=== PATIENT | male | born 1985 | race Caucasian/White ===

== ENCOUNTER 2018-04-10 14:55 | Emergency (ER) | payer BC ==
[~2018-04-10] VITALS: Ht 188 cm; Wt 61.2 kg
[~2018-04-10 14:55] MED LIST: NOHOMEMEDICATIONS; ZOFRAN ODT4 MG PO
[2018-04-10 15:54] VITALS: BP 119/83
== END 2018-04-10 15:56 | disposition home or self-care (01) ==
LOC: M.ERS 14:55
DX: S90.31XA Contusion of right foot, initial encounter (principal); X50.1XXA Overexertion from prolonged static or awkward postures, initial encounter; Y93.02 Activity, running; Y92.89 Other specified places as the place of occurrence of the external cause; Y99.8 Other external cause status

== ENCOUNTER 2019-02-23 12:50 | Emergency (ER) | payer BC ==
[~2019-02-23] VITALS: Ht 190.5 cm; Wt 59.0 kg
[2019-02-23 13:16] LABS: ABSOLUTE EOSINOPHILS 0.1 thou/uL (0.0-0.7); ABSOLUTE LYMPHOCYTES 2.1 thou/uL (0.8-5.3); ABSOLUTE MONOCYTES 0.9 thou/uL (0.0-1.2); ABSOLUTE NEUTROPHILS 4.1 thou/uL (1.6-8.1); BASOPHILS 0.6 %; EOSINOPHILS 1.6 %; HEMATOCRIT 43.9 % (42.0-52.0); HEMOGLOBIN 15.3 gm/dL (14.0-18.0); MCH 31.4 pg (26.0-34.0); MCHC 34.7 g/dL (28.0-37.0); MCV 90.5 fL (80.0-100.0); MPV 8.8 fl. (7.2-11.1); NUCLEATED RBCS 0 /100WBC; PLATELET COUNT* 182 thou/uL (150-400); POLYS 56.8 %; RBC 4.85 mil/uL (4.50-6.00); RDW-CV 13.1 % (10.5-14.5); WBC 7.2 thou/uL (4.0-11.0)
[2019-02-23 13:32] LABS: ANION GAP 10 mmol/L (7-16); BUN 14 mg/dL (7-18); CALCIUM 9.1 mg/dL (8.5-10.1); CHLORIDE 101 mmol/L (98-107); CO2 30 mmol/L (21-32); CREATININE 0.9 mg/dL (0.6-1.3); GLUCOSE 92 mg/dL (70-99); POTASSIUM 3.8 mmol/L (3.5-5.1); SODIUM 141 mmol/L (136-145); TROPONIN-I LEVEL <0.06 ng/mL (<0.06)
[2019-02-23 13:34] LABS: ALBUMIN 4.2 g/dL (3.4-5.0); ALKALINE PHOSPHATASE 53 U/L (46-116); LIPASE 146 U/L (73-393); NT-PRO BRAIN NAT PEPTIDE 82 pg/mL (<300); SGOT 16 U/L (15-37); SGPT 22 U/L (30-65); TOTAL BILIRUBIN 0.3 mg/dL (<0.1-1.0); TOTAL PROTEIN 7.7 g/dL (6.4-8.2)
[2019-02-23] MEDS ORDERED: NAPROSYN500 M1 PO (14:02)
[2019-02-23 14:13] VITALS: BP 115/65
--- NOTE | 2019-02-23 14:55 | EKG ---
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 : 1985 Requested By: Moisés Maria Order Number: [id number] MD: Rasheed Gonzales Measurements Intervals [place] Rate: 57 P: 72 DE: 124 QRS: 83 QRSD: 107 T: 61 QT: 416 QTc: 405 Interpretive Statements Sinus rhythm Probable left atrial enlargement RSR' in V1 or V2, probably normal variant ST elev, probable normal early repol pattern No previous ECG available for comparison Electronically Signed On 02-23-2019 14:55:41 CDT by Rasheed Gonzales [email or web address] <ELECTRONICALLY SIGNED> By: Rasheed Gonzales MD, [facility] 02/23/19 1455 1255 1255 Rasheed Gonzales MD, FACC /EPI
== END 2019-02-23 14:13 | disposition home or self-care (01) ==
LOC: M.ERS 12:50
PROVIDERS: Emergency Medicine
DX: R07.89 Other chest pain (principal); R94.31 Abnormal electrocardiogram [ECG] [EKG]